=== PATIENT | female | born 1970 | race Caucasian/White ===

== ENCOUNTER → 2017-06-13 | Outpatient (CLI) | payer OTHER ==
[2017-06-01 12:00] VITALS: BP 122/80
[~2017-06-13] MED LIST: ASPI-612 PO; CARV3.122 PO; FURO20TA3 PO; LISI-338 PO; POTA20TA4 PO; PROAIR RESPICL90 MCG IH; TIOT4MIS3 IH; VARE1TAB21 PO
--- NOTE | 2017-06-13 10:12 | RAD ---
Chest radiograph 2 views 06/13/2017 Indication: Shortness of breath and CHF. Comparison: 05/30/2017. Findings: Since prior examination, removal of endotracheal and transesophageal gastric tubes. Cardiac and mediastinal silhouettes are within normal limits. No pleural effusion, pneumothorax or focal consolidation. Impression: 1. Removal of endotracheal and gastric tubes. 2. No acute cardiopulmonary abnormality.
== END | disposition home or self-care (01) ==
LOC: RAD 09:49
PROVIDERS: ATTEND Internal Medicine Pulmonary Disease
DX: I50.9 Heart failure, unspecified (principal)
CPT/HCPCS: 71020

== ENCOUNTER → 2017-09-03 | Outpatient (CLI) | payer OTHER ==
[2017-06-01 12:00] VITALS: BP 122/80
--- NOTE | 2017-09-03 12:16 | CARD ---
APPROVED REPORT EXAM: Two-dimensional and M-mode echocardiogram with Doppler and color Doppler. Other Information Quality : Good INDICATION Congestive Heart Failure 2D DIMENSIONS Left Atrium(2D)3.1 (1.6-4.0cm)IVSd1.2 (0.7-1.1cm) Aortic Root(2D)2.6 (2.0-3.7cm)LVDd4.6 (3.9-5.9cm) LVOT Diameter2.0 (1.8-2.4cm)PWd1.2 (0.7-1.1cm) LVDs3.3 (2.5-4.0cm)FS (%) 27.8 % SV52.3 mlLVEF(%)53.9 (>50%) Aortic Valve AoV Peak Clayton.161.2cm/sAoV VTI34.9cm AO Peak GR.10.4mmHgLVOT Peak Clayton.116.3cm/s AO Mean GR.5mmHgAVA (VMAX)2.19cm2 JONO (VTI)2.10cm2 Mitral Valve MV E Pvbihlpa42.2cm/sMV DECEL UJTB110ax MV A Wrgwwlpn69.2cm/sE/A Ratio1.2 Tricuspid Valve TR P. Focrntoy945qa/sTR Peak Gr.16mmHg LEFT VENTRICLE The left ventricle is normal size. There is mild concentric left ventricular hypertrophy. Left ventri gloria systolic function is normal. The Ejection Fraction is 55-60%. There is normal LV segmental wall m otion. The left ventricular diastolic function and filling is normal for age. RIGHT VENTRICLE The right ventricle is normal size. The right ventricular systolic function is normal. ATRIA The left atrium size is normal. The right atrium size is normal. The interatrial septum is intact wit h no evidence for an atrial septal defect or patent foramen ovale as noted on 2-D or Doppler imaging. AORTIC VALVE The aortic valve is normal in structure and function. Doppler and Color Flow revealed no significant aortic regurgitation. There is no significant aortic valvular stenosis. MITRAL VALVE The mitral valve appears mildly thickend. There is no evidence of mitral valve prolapse. There is no mitral valve stenosis. Doppler and Color-flow revealed mild mitral regurgitation. TRICUSPID VALVE The tricuspid valve is normal in structure and function. Doppler and Color Flow revealed trace tricus pid regurgitation. The PA pressure was estimated at 21 mmHg. There is no tricuspid valve prolapse or vegetation. There is no tricuspid valve stenosis. PULMONIC VALVE The pulmonary valve is normal in structure and function. Doppler and Color Flow revealed no pulmonic valvular regurgitation. There is no pulmonic valvular stenosis. GREAT VESSELS The aortic root is normal in size. The ascending aorta is normal in size. The IVC is normal in size a nd collapses >50% with inspiration. PERICARDIAL EFFUSION There is no pleural effusion. There is no evidence of significant pericardial effusion. Critical Notification Critical Value: No <Conclusion> Left ventricle systolic function is normal. The Ejection Fraction is 55-60%. There is normal LV segmental wall motion. Mild mitral regurgitation. Trace tricuspid regurgitation. The PA pressure was estimated at 21 mmHg. There is no evidence of significant pericardial effusion.
== END | disposition home or self-care (01) ==
LOC: ECHO 08:47
PROVIDERS: ATTEND Internal Medicine Cardiovascular Disease
DX: I08.1 Rheumatic disorders of both mitral and tricuspid valves (principal); I42.9 Cardiomyopathy, unspecified
CPT/HCPCS: 93306

== ENCOUNTER → 2018-10-21 | Outpatient (CLI) | payer OTHER ==
[2017-06-01 12:00] VITALS: BP 122/80
[~2018-10-21] MED LIST changes: +CARV3.1210 PO; -CARV3.122 PO
--- NOTE | 2018-10-21 11:00 | CARD ---
MR#: [id number] Date of Study: 10/21/2018 Ordering Physician: LANG CEJA, Referring Physician: LANG CEJA, Tech: Angelina Renteria MAXINE APPROVED REPORT EXAM: Two-dimensional and M-mode echocardiogram with Doppler and color Doppler. Other Information Quality : AverageHR: 60bpm Rhythm : NSR INDICATION Cardiomyopathy 2D DIMENSIONS RVDd2.9 (2.9-3.5cm)Left Atrium(2D)3.0 (1.6-4.0cm) IVSd1.0 (0.7-1.1cm)Aortic Root(2D)2.8 (2.0-3.7cm) LVDd4.4 (3.9-5.9cm)LVOT Diameter1.9 (1.8-2.4cm) PWd0.9 (0.7-1.1cm)LVDs3.3 (2.5-4.0cm) FS (%) 26.4 %SV46.4 ml LVEF(%)52.0 (>50%) M-Mode DIMENSIONS Left Atrium(MM)2.80 (2.5-4.0cm)Aortic Root2.99 (2.2-3.7cm) Aortic Valve AoV Peak Clayton.165.7cm/sAoV VTI31.4cm AO Peak GR.11.0mmHgLVOT Peak Clayton.80.3cm/s AO Mean GR.4mmHgAVA (VMAX)1.33cm2 JONO (VTI)1.50cm2 Mitral Valve MV E Pzecyuqo01.1cm/sMV DECEL NHIC945qu MV A Islmshfl04.4cm/sE/A Ratio1.2 MV A Mhcpdimk903lx Pulmonary Valve PV Peak Kfhqyzlh90.2cm/s Tricuspid Valve TR P. Kfrnyvjx851pz/sRAP FEDWRCZT8acHj TR Peak Gr.41vsRsDLPV20zbFl Pulmonary Vein S1 Hcofazzs22.6cm/sD2 Lfkhtwsn01.2cm/s PVa iywrcuhl44exao LEFT VENTRICLE The left ventricle is normal size. There is normal left ventricular wall thickness. Left ventricle sy stolic function is normal. The Ejection Fraction is 55%. There is normal LV segmental wall motion. Tr ansmitral Doppler flow pattern is Grade II-pseudonormal filling dynamics. RIGHT VENTRICLE The right ventricle is normal size. There is normal right ventricular wall thickness. The right ventr icular systolic function is normal. ATRIA The left atrium size is normal. The right atrium is mildly dilated. The interatrial septum is intact with no evidence for an atrial septal defect or patent foramen ovale as noted on 2-D or Doppler imagi ng. AORTIC VALVE The aortic valve is normal in structure and function. The aortic valve is trileaflet. Doppler and Col or Flow revealed no significant aortic regurgitation. There is no significant aortic valvular stenosi s. MITRAL VALVE The mitral valve is normal in structure and function. There is no evidence of mitral valve prolapse. There is no mitral valve stenosis. Doppler and Color-flow revealed trace mitral regurgitation. TRICUSPID VALVE The tricuspid valve is normal in structure and function. Doppler and Color Flow revealed trace tricus pid regurgitation. The PA pressure was estimated at 26 mmHg. There is no tricuspid valve prolapse or vegetation. There is no tricuspid valve stenosis. PULMONIC VALVE Pulmonic valve not well visualized. GREAT VESSELS The aortic root is normal in size. The ascending aorta is normal in size. The IVC is normal in size a nd collapses >50% with inspiration. PERICARDIAL EFFUSION There is no evidence of significant pericardial effusion. Critical Notification Critical Value: No <Conclusion> Left ventricle systolic function is normal. The Ejection Fraction is 55%. There is normal LV segmental wall motion. Trace mitral regurgitation. Trace tricuspid regurgitation. The PA pressure was estimated at 26 mmHg. There is no evidence of significant pericardial effusion. Signed by : Steve Munoz, Electronically Approved : 10/21/2018 10:59:37
== END | disposition home or self-care (01) ==
LOC: ECHO 10:00
PROVIDERS: ATTEND Internal Medicine Cardiovascular Disease
DX: I42.8 Other cardiomyopathies (principal)
CPT/HCPCS: 93306

== ENCOUNTER → 2019-10-20 | Outpatient (CLI) | payer OTHER ==
[2017-06-01 12:00] VITALS: BP 122/80
--- NOTE | 2019-10-20 11:14 | CARD ---
MR#: [id number] Date of Study: 10/20/2019 Ordering Physician: LANG CEJA, Referring Physician: LANG CEJA, Tech: Charline Robbins MAXINE APPROVED REPORT EXAM: Two-dimensional and M-mode echocardiogram with Doppler and color Doppler. Other Information Quality : Good INDICATION Non-Ischemic Cardiomyopathy 2D DIMENSIONS Left Atrium(2D)2.7 (1.6-4.0cm)IVSd1.1 (0.7-1.1cm) Aortic Root(2D)2.8 (2.0-3.7cm)LVDd4.4 (3.9-5.9cm) LVOT Diameter2.0 (1.8-2.4cm)PWd1.1 (0.7-1.1cm) LVDs3.4 (2.5-4.0cm)FS (%) 20.9 % SV36.7 mlLVEF(%)50.0 (>50%) Aortic Valve AoV Peak Clayton.164.5cm/sAoV VTI32.0cm AO Peak GR.10.8mmHgLVOT Peak Clayton.106.1cm/s AO Mean GR.6mmHgAVA (VMAX)1.97cm2 JONO (VTI)2.20cm2 Mitral Valve MV E Mxkjrwxr99.2cm/sMV DECEL DUGS173rn MV A Lburqmgp055.4cm/sE/A Ratio0.8 Tricuspid Valve TR P. Syqlwlas807su/sRAP MVXNPDJK3deSq TR Peak Gr.39wxCrBGJA41hqXf Pulmonary Vein S1 Yhsivcky11.8cm/sD2 Cvrfxtxi22.1cm/s LEFT VENTRICLE The left ventricle is normal size. There is normal left ventricular wall thickness. Left ventricle sy stolic function is grossly normal. The Ejection Fraction is 50-55%. There is normal LV segmental wall motion. Transmitral Doppler flow pattern is Grade I-abnormal relaxation pattern. RIGHT VENTRICLE The right ventricle is normal size. The right ventricular systolic function is normal. ATRIA The left atrium size is normal. The right atrium size is normal. The interatrial septum is intact wit h no evidence for an atrial septal defect or patent foramen ovale as noted on 2-D or Doppler imaging. AORTIC VALVE The aortic valve is not well visualized but appears to be functioning normally by Doppler interrogati on. Doppler and Color Flow revealed trace aortic regurgitation. There is no significant aortic valvul ar stenosis. MITRAL VALVE The mitral valve is normal in structure and function. There is no evidence of mitral valve prolapse. There is no mitral valve stenosis. Doppler and Color-flow revealed trace mitral regurgitation. TRICUSPID VALVE The tricuspid valve is normal in structure and function. Doppler and Color Flow revealed trace tricus pid regurgitation. The PA pressure was estimated at 20 mmHg. There is no tricuspid valve stenosis. PULMONIC VALVE The pulmonic valve is not well visualized. Doppler and Color Flow revealed no pulmonic valvular regur gitation. There is no pulmonic valvular stenosis. GREAT VESSELS The aortic root is normal in size. The ascending aorta is not well seen. The IVC is normal in size an d collapses >50% with inspiration. PERICARDIAL EFFUSION There is no evidence of significant pericardial effusion. Critical Notification Critical Value: No <Conclusion> Left ventricle systolic function is grossly normal. The Ejection Fraction is 50-55%. There is normal LV segmental wall motion. Signed by : Mann Wilburn, Electronically Approved : 10/20/2019 11:14:18
== END ==
LOC: ECHO 08:35
PROVIDERS: ATTEND Internal Medicine Cardiovascular Disease
DX: I42.8 Other cardiomyopathies (principal); I08.1 Rheumatic disorders of both mitral and tricuspid valves
CPT/HCPCS: 93306

== ENCOUNTER → 2020-11-01 | Outpatient (CLI) | payer OTHER ==
[2017-06-01 12:00] VITALS: BP 122/80
[~2020-11-01] MED LIST changes: -ASPI-612 PO; +ASPI-886 PO
--- NOTE | 2020-11-01 16:33 | CARD ---
MR#: [id number] Date of Study: 11/01/2020 Ordering Physician: LANG MCKENZIE, Referring Physician: LANG MCKENZIE, Tech: Charline Robbins MAXINE APPROVED REPORT EXAM: Two-dimensional and M-mode echocardiogram with Doppler and color Doppler. Other Information Quality : Good INDICATION Non-Ischemic Cardiomyopathy RISK FACTORS Obesity 2D DIMENSIONS Left Atrium(2D)3.2 (1.6-4.0cm)IVSd1.5 (0.7-1.1cm) Aortic Root(2D)2.9 (2.0-3.7cm)LVDd3.8 (3.9-5.9cm) LVOT Diameter1.8 (1.8-2.4cm)PWd1.5 (0.7-1.1cm) LVDs2.9 (2.5-4.0cm)FS (%) 25.3 % SV32.2 ml Aortic Valve AoV Peak Clayton.144.5cm/sAoV VTI27.9cm AO Peak GR.8.4mmHgLVOT Peak Clayton.109.0cm/s AO Mean GR.5mmHgAVA (VMAX)2.01cm2 JONO (VTI)2.00cm2 Mitral Valve MV E Ujianebm55.0cm/sMV DECEL DEPO201av MV A Luktrfzm73.6cm/sE/A Ratio0.8 Tricuspid Valve TR P. Ipdjuaeg245fl/sRAP ACDOIIQL3myUa TR Peak Gr.26ogFcSYSR61sfLd Pulmonary Vein S1 Dsxcmfge02.3cm/sD2 Ebvruale93.9cm/s LEFT VENTRICLE The left ventricle is normal size. There is mild concentric left ventricular hypertrophy. The left ve ntricular systolic function is normal. The ejection fraction is 55-60%. There is normal LV segmental wall motion. Transmitral Doppler flow pattern is Grade I-abnormal relaxation pattern. RIGHT VENTRICLE The right ventricle is normal size. The right ventricular systolic function is normal. ATRIA The left atrium size is normal. The right atrium size is normal. The interatrial septum is intact wit h no evidence for an atrial septal defect or patent foramen ovale as noted on 2-D or Doppler imaging. AORTIC VALVE The aortic valve is normal in structure and function. Doppler and Color Flow revealed no significant aortic regurgitation. There is no significant aortic valvular stenosis. MITRAL VALVE The mitral valve is calcified but opens well. There is no evidence of mitral valve prolapse. There is no mitral valve stenosis. Doppler and Color Flow revealed no mitral valve regurgitation noted. TRICUSPID VALVE The tricuspid valve is normal in structure and function. Doppler and Color Flow revealed trace tricus pid regurgitation. The PA pressure was estimated at 29 mmHg. There is no tricuspid valve stenosis. PULMONIC VALVE The pulmonic valve is not well visualized. Doppler and Color Flow revealed no pulmonic valvular regur gitation. There is no pulmonic valvular stenosis. GREAT VESSELS The aortic root is normal in size. The ascending aorta is borderline dilated at 3.2 cm. The IVC is no rmal in size and collapses >50% with inspiration. PERICARDIAL EFFUSION There is no evidence of significant pericardial effusion. Critical Notification Critical Value: No <Conclusion> The left ventricle is normal size. The left ventricular systolic function is normal. The ejection fraction is 55-60%. There is normal LV segmental wall motion. There is mild concentric left ventricular hypertrophy. Doppler and Color Flow revealed no significant aortic regurgitation. There is no significant aortic valvular stenosis. Doppler and Color Flow revealed no mitral valve regurgitation noted. Doppler and Color Flow revealed trace tricuspid regurgitation. The PA pressure was estimated at 29 mmHg. Signed by : Lang Mckenzie MD Electronically Approved : 11/01/2020 16:33:02
== END ==
LOC: ECHO 08:47
PROVIDERS: ATTEND Internal Medicine Cardiovascular Disease
DX: I34.0 Nonrheumatic mitral (valve) insufficiency (principal); I42.8 Other cardiomyopathies
CPT/HCPCS: 93306

== ENCOUNTER → 2021-10-26 | Outpatient (CLI) | payer OTHER ==
[2017-06-01 12:00] VITALS: BP 122/80
[~2021-10-26] MED LIST changes: -LISI-338 PO; +LISI5TAB15 PO; +POTA-121 PO; -POTA20TA4 PO
--- NOTE | 2021-10-26 16:06 | CARD ---
MR#: [id number] Date of Study: 10/26/2021 Ordering Physician: LANG CEJA, Referring Physician: LANG CEJA, Tech: Jovita Torieddie, [facility] APPROVED REPORT EXAM: Two-dimensional and M-mode echocardiogram with Doppler and color Doppler. Other Information Quality : AverageHR: 81bpm Technically limited study due to body habitus. INDICATION COPD Cardiomyopathy RISK FACTORS Hypertension 2D DIMENSIONS Left Atrium(2D)2.5 (1.6-4.0cm)IVSd0.8 (0.7-1.1cm) Aortic Root(2D)2.8 (2.0-3.7cm)LVDd4.5 (3.9-5.9cm) LVOT Diameter2.1 (1.8-2.4cm)PWd0.9 (0.7-1.1cm) LVDs3.0 (2.5-4.0cm)FS (%) 32.6 % SV56.0 mlLVEF(%)61.1 (>50%) Aortic Valve AoV Peak Clayton.203.9cm/sAoV VTI34.8cm AO Peak GR.17.1mmHgLVOT Peak Clayton.131.9cm/s AO Mean GR.8mmHgAVA (VMAX)2.25cm2 Mitral Valve MV E Iqkpmxyj57.8cm/sMV E Peak Gr.5mmHg MV DECEL GTFG420twQG A Pqaxeapv345.7cm/s MV E Mean Gr.2mmHgE/A Ratio0.8 Pulmonary Valve PV Peak Biryuubo39.9cm/s Tricuspid Valve TR P. Cxuwqlsu333tc/sRAP MNMBHERT4anFv TR Peak Gr.87psItTVMD43qaSu Pulmonary Vein S1 Ovqafobx74.2cm/sD2 Rtkerfah16.0cm/s PVa xffxfxvj810htpd LEFT VENTRICLE The left ventricle is normal size. There is normal left ventricular wall thickness. The left ventricu lar systolic function is normal and the ejection fraction is within normal range. The Ejection Fracti on is 50-55%. There is normal LV segmental wall motion. Transmitral Doppler flow pattern is Grade I-a bnormal relaxation pattern. RIGHT VENTRICLE The right ventricle is normal size. There is normal right ventricular wall thickness. The right ventr icular systolic function is normal. ATRIA The left atrium size is normal. The right atrium size is normal. The interatrial septum is intact wit h no evidence for an atrial septal defect or patent foramen ovale as noted on 2-D or Doppler imaging. AORTIC VALVE The aortic valve is normal in structure and function. No aortic regurgitation is present. There is no aortic valvular stenosis. Calculated aortic valve area is 2.5 cm2 with maximum pressure gradient of 17 mmHg and mean pressure gradient of 7 mmHg. MITRAL VALVE The mitral valve is normal in structure and function. There is no evidence of mitral valve prolapse. There is no mitral valve stenosis. There is no mitral valve regurgitation noted. TRICUSPID VALVE The tricuspid valve is normal in structure and function. Doppler and Color Flow revealed trace tricus pid regurgitation with an estimated PAP of 29 mmHg. There is no tricuspid valve stenosis. PULMONIC VALVE There is no pulmonic valvular regurgitation. There is no pulmonic valvular stenosis. GREAT VESSELS The aortic root is normal in size. The IVC is normal in size and collapses >50% with inspiration. PERICARDIAL EFFUSION There is no evidence of significant pericardial effusion. Critical Notification Critical Value: No <Conclusion> The left ventricular systolic function is normal and the ejection fraction is within normal range. Th e Ejection Fraction is 50-55%. There is normal LV segmental wall motion. Signed by : Mann Wilburn, Electronically Approved : 10/26/2021 16:06:12
== END ==
LOC: ECHO 09:39
PROVIDERS: ATTEND Internal Medicine Cardiovascular Disease
DX: I42.8 Other cardiomyopathies (principal); J44.9 Chronic obstructive pulmonary disease, unspecified
CPT/HCPCS: 93306